=== PATIENT | female | born 1995 | race African-American/Black ===

== ENCOUNTER 2021-10-27 19:30 | Emergency (ER) | payer OTHER ==
[2021-10-27 19:39] VITALS: BP 115/80; PULSE 78; BMI 34.5
[2021-10-27 21:18] LABS: EPI CELLS 31 /uL (0-25.1); HYALINE CASTS 1 /uL (0-3.1); URINE APPEARANCE CLEAR; URINE BACTERIA 887 /uL (0-1359); URINE BILIRUBIN NEGATIVE (NEGATIVE); URINE COLOR YELLOW; URINE GLUCOSE (UA) NEGATIVE (NEGATIVE); URINE KETONE NEGATIVE (NEGATIVE); URINE LEUK ESTERASE NEGATIVE (NEGATIVE); URINE NITRITE NEGATIVE (NEGATIVE); URINE PROTEIN NEGATIVE (NEGATIVE); URINE WBC 19 /uL (0-25.8)
[2021-10-27] MEDS ORDERED: ACETAMINOPHEN 325 MG TABLET (FP) PO ONE (21:18)
[2021-10-27 21:30] LABS: BASO % 0.8 % (0-2.0); EOS % 2.1 % (0-4.5); HEMATOCRIT 36.6 % (32.4-45.2); LYMPH % 40.9 % (8-40); MCH 27.5 pg (25.7-33.7); MCHC 32.8 g/dl (32.0-36.0); MEAN CELL VOLUME 83.9 fl (80-96); MEAN PLT VOLUME 7.4 fl (7.5-11.1); MONO % 6.3 % (3.8-10.2); NEUT % 49.9 % (42.8-82.8); PLATELET COUNT 235 10^3/uL (134-434); RBC 4.37 M/mm3 (3.60-5.2); RDW 14.3 % (11.6-15.6); WHITE BLOOD COUNT 5.6 K/mm3 (4.0-10.0)
[2021-10-27] MEDS ORDERED: ACETAMINOPHEN 325 MG TABLET (FP) ONE (21:32)
[2021-10-27 21:54] LABS: URINE RBC 21 /uL (0-23.9)
[2021-10-27 22:14] LABS: BLOOD UREA NITROGEN 14.6 mg/dL (7-18)
[2021-10-27 22:15] LABS: ALBUMIN 3.4 g/dl (3.4-5.0); CALCIUM 8.8 mg/dL (8.5-10.1)
[2021-10-27 22:20] LABS: TOT PROT 7.7 g/dl (6.4-8.2)
[2021-10-27 22:25] LABS: BILIRUBIN,TOTAL 0.2 mg/dL (0.2-1)
== END 2021-10-27 22:47 | disposition home or self-care (01) ==
LOC: JER 19:30
DX: O20.0 Threatened abortion (principal); Z3A.01 Less than 8 weeks gestation of pregnancy
CPT/HCPCS: 36415; 76817-TC; 80053; 81003; 84702; 85025; 86850; 86900; 86901; 87086; 99284-25